=== PATIENT | female | born 1975 | race Caucasian/White ===

== ENCOUNTER 2018-06-04 16:35 | Emergency (ER) | payer BC ==
[2018-06-04] MEDS ORDERED: SODIUM CHLORIDE 1,000 ML IV STA ×2 (16:42→17:50)
[2018-06-04] MEDS ORDERED: ONDANSETRON 4 MG/2 ML VIAL IVPB ONE (16:42)
--- NOTE | 2018-06-04 16:48 | PDOC ---
History of Present Illness - General History Source: Patient Exam Limitations: No Limitations - History of Present Illness Initial Comments: 06/04/18 16:49 The patient is a year old female, with a significant past medical history of, who presents to the emergency department with, nausea, vomiting, abdominal pain , and nonbloody diarrhea. As per patient, her child and were recently sick with similar symptoms. Her was in the ER the day prior and discharged diagnosed with a viral infection. She describes her abdominal pain as a constant cramping. Patient notes she has not been able to tolerate any PO intake today, prompting her visit to the ER. She denies recent fevers, chills, headache or dizziness. She denies recent dysuria, frequency, urgency or hematuria. She denies recent chest pain or shortness of breath. Allergies: NKA Past surgical history: . Social history: Nonsmoker. Denies EtOH use and recreational drug use. <Radames Tompkins - Last Filed: 06/04/18 16:49> <Stephen Obregon - Last Filed: 06/04/18 18:58> - General Chief Complaint: Vomiting/Diarrhea Stated Complaint: VOMITING, DIARRHEA Time Seen by Provider: 06/04/18 16:41 Past History <Radames Tompkins - Last Filed: 06/04/18 16:49> - Past Medical History COPD: No Other medical history: SEASONAL/ENVIRONMENTAL ALLERGIES - Suicide/Smoking/Psychosocial Hx Smoking History: Never smoked Have you smoked in the past 12 months: No Information on smoking cessation initiated: No Hx Alcohol Use: No Drug/Substance Use Hx: No Substance Use Type: None <Stephen Obregon - Last Filed: 06/04/18 18:58> - Past Medical History Allergies/Adverse Reactions: Allergies Allergy/AdvReac Type Severity Reaction Status Date / Time No Known Allergies Allergy Verified 06/04/18 16:37 Home Medications: Ambulatory Orders Fexofenadine HCl [Lisa Allergy] mg PO BID 06/04/18 Fluticasone Prop 0.05% Nasal [Flonase -] 1 - 2 spray NS DAILY 06/04/18 Montelukast Sodium [Singulair] 10 mg PO DAILY 06/04/18 Ondansetron [Zofran Odt -] 4 mg SL TID PRN #12 od.tablet 06/04/18 Review of Systems - Review of Systems Able to Perform ROS?: Yes Comments:: 06/04/18 16:49 CONSTITUTIONAL: Absent: fever, no chills, no fatigue EYES: Absent: visual changes ENT: Absent: ear pain, no sore throat CARDIOVASCULAR: Absent: chest pain, no palpitations RESPIRATORY: Absent: cough, no SOB GI: Present: abdominal pain, nausea, vomiting, diarrhea GENITOURINARY: Absent: dysuria, no frequency, no hematuria MUSKULOSKELETAL: Absent: back pain, no arthralgia, no myalgia SKIN: Absent: rash NEURO: Absent: headache All Other Systems: Reviewed and Negative <Radames Tompkins - Last Filed: 06/04/18 16:49> *Physical Exam - Vital Signs Last Vital Signs Temp Pulse Resp BP Pulse Ox 98.1 F 111 H 18 113/74 98 06/04/18 16:35 06/04/18 16:35 06/04/18 16:35 06/04/18 16:35 06/04/18 16:35 - Physical Exam Comments: 06/04/18 16:50 GENERAL: Well developed, well nourished. Awake and alert. No acute distress. HEENT: Normocephalic, atraumatic. PERRLA, EOMI. No conjunctival pallor. Sclera are non- icteric. Moist mucous membranes. Oropharynx is clear. NECK: Supple. Full ROM. No JVD. Carotid pulses 2+ and symmetric, without bruits. No thyromegaly. No lymphadenopathy. CARDIOVASCULAR: Regular rate and rhythm. No murmurs, rubs, or gallops. Distal pulses are 2+ and symmetric. PULMONARY: No evidence of respiratory distress. Lungs clear to auscultation bilaterally. No wheezing, rales or rhonchi. +ABDOMINAL: Mild diffuse tenderness without localization. Soft. Non-distended. No rebound or guarding. No organomegaly. Normoactive bowel sounds. MUSCULOSKELETAL Normal range of motion at all joints. No bony deformities or tenderness. No CVA tenderness. EXTREMITIES: No cyanosis. No clubbing. No edema. No calf tenderness. SKIN: Warm and dry. Normal capillary refill. No rashes. No jaundice. NEUROLOGICAL: Alert, awake, appropriate. Cranial nerves 2-12 intact. No deficits to light touch and temperature in face, upper extremities and lower extremities. No motor deficits in the in face, upper extremities and lower extremities. Normoreflexic in the upper and lower extremities. Normal speech. Toes are down- going bilaterally. Gait is normal without ataxia. PSYCHIATRIC: Cooperative. Good eye contact. Appropriate mood and affect. <Radames Tompkins - Last Filed: 06/04/18 16:49> - Vital Signs Last Vital Signs Temp Pulse Resp BP Pulse Ox 98.1 F 111 H 18 113/74 98 06/04/18 16:35 06/04/18 16:35 06/04/18 16:35 06/04/18 16:35 06/04/18 16:35 <Stephen Obregon - Last Filed: 06/04/18 18:58> ED Treatment Course - LABORATORY CBC & Chemistry Diagram: 06/04/18 16:42 06/04/18 16:55 <Stephen Obregon - Last Filed: 06/04/18 18:58> Medical Decision Making - Medical Decision Making 06/04/18 17:05 Woman with nausea vomiting and diarrhea since this morning. Unable to hold anything down. and small child had similar illnesses earlier in the week , have recovered. No history of GI disease or surgery other than . No fever/chills or continuous abdominal pain Vital signs are normal except for minimal tachycardia, and physical exam shows only mild diffuse abdominal tenderness without localization, without guarding or rebound. Normal bowel sounds and nondistended. IV fluids and Zofran administered. Observation. 06/04/18 17:07 06/04/18 18:10 WBC 13.2 with a left shift. Sodium 130. Potassium 4.0. Remainder of labs without significant abnormalities. Consistent with viral gastroenteritis. Patient much improved. No further vomiting. No further diarrhea. Nausea is controlled. 06/04/18 18:43 <Stephen Obregon - Last Filed: 06/04/18 18:58> *DC/Admit/Observation/Transfer - Attestations Scribe Attestion: 06/04/18 16:50 Documentation prepared by Radames Tompkins, acting as medical records library professor for Stephen Ponce MD. <Radames Tompkins - Last Filed: 06/04/18 16:49> - Discharge Dispostion Decision to Admit order: No <Stephen Obregon - Last Filed: 06/04/18 18:58> Diagnosis at time of Disposition: Viral gastroenteritis - Discharge Dispostion Disposition: HOME Condition at time of disposition: Improved - Prescriptions Prescriptions: Ondansetron [Zofran Odt -] 4 mg SL TID PRN #12 od.tablet PRN Reason: Nausea And/Or Vomiting - Referrals Referrals: Ajay Bruno MD [Staff Physician] - - Patient Instructions Printed Discharge Instructions: DI for Viral Gastroenteritis -- Adult
[2018-06-04 16:52] LABS: PH,URINE 5.5 (4.5-8); URINE APPEARANCE Clear; URINE BILIRUBIN 1+ (NEGATIVE); URINE COLOR Amber; URINE GLUCOSE (UA) Negative (NEGATIVE); URINE KETONE Trace (NEGATIVE); URINE LEUK ESTERASE Negative (NEGATIVE); URINE NITRITE Negative (NEGATIVE); URINE PROTEIN Trace (NEGATIVE); URINE UROBILINOGEN 0.2 (0.2-1.0)
[2018-06-04 16:55] VITALS: BP 113/74; TEMP 98.1; BMI 31.8
[2018-06-04 16:58] LABS: HCG,QUALITATIVE URINE Negative
[2018-06-04 17:00] LABS: EPI CELLS 4+ /HPF; URINE BACTERIA FEW /hpf (NEGATIVE); URINE RBC 0-2 /hpf (0-3); URINE WBC 0-2 (0-5)
[2018-06-04] MEDS ORDERED: ONDANSETRON 4 MG/2 ML VIAL ONE (17:02)
[2018-06-04 17:07] LABS: HEMOGLOBIN 14.9 GM/dl (10.7-15.3)
[2018-06-04 17:11] LABS: HEMATOCRIT 43.9 % (32.4-45.2); MCH 31.8 pg (25.7-33.7); MCHC 33.9 g/dl (32.0-36.0); MEAN CELL VOLUME 93.9 fl (80-96); MEAN PLT VOLUME 8.9 fl (7.5-11.1); PLATELET COUNT 298 K/MM3 (134-434); RBC 4.68 M/mm3 (3.60-5.2); RDW 11.5 % (11.6-15.6); WHITE BLOOD COUNT 13.2 K/mm3 (4.0-10.8)
[2018-06-04 17:21] LABS: ALK PHOS 84 U/L (32-92); ANION GAP 5 MMOL/L (8-16); BILIRUBIN,TOTAL 0.9 mg/dl (0.2-1.0); BLOOD UREA NITROGEN 13 mg/dl (7-18); CALCIUM 9.1 mg/dl (8.4-10.2); CHLORIDE 104 mmol/L (98-107); CO2 22 mmol/L (22-28); CREATININE 0.9 mg/dl (0.6-1.3); GLUCOSE,RANDOM 124 mg/dl (74-106); SGOT/AST 27 U/L (10-42); SGPT/ALT 47 U/L (10-40); SODIUM 131 mmol/L (136-145); TOT PROT 7.8 g/dl (6.4-8.3)
[2018-06-04 17:23] LABS: PLATELET ESTIMATE ADEQUATE
[2018-06-04] MEDS ORDERED: ACETAMINOPHEN 1000 MG/100 ML VIAL (NON FORMULARY) IVPB ONE (17:50)
[2018-06-04] MEDS ORDERED: ACETAMINOPHEN INJECTION 100 ML IVPB ONE (17:50)
[2018-06-04 19:15] VITALS: PULSE 89
== END 2018-06-04 19:01 | disposition home or self-care (01) ==
LOC: FER 16:35
PROC: 3E033NZ Introduction of Analgesics, Hypnotics, Sedatives into Peripheral Vein, Percutaneous Approach (ICD-10-PCS; principal; 2018-06-04)
PROC: 3E033GC Introduction of Other Therapeutic Substance into Peripheral Vein, Percutaneous Approach (ICD-10-PCS; 2018-06-04)
PROC: 3E0337Z Introduction of Electrolytic and Water Balance Substance into Peripheral Vein, Percutaneous Approach (ICD-10-PCS; 2018-06-04)
DX: A08.4 Viral intestinal infection, unspecified (principal)
CPT/HCPCS: 36415; 80053; 81003; 81015; 84703; 85025; 99283-25; J0131; J7030

== ENCOUNTER 2018-06-08 10:25 | Emergency (ER) | payer BC ==
[2018-06-08] MEDS ORDERED: SODIUM CHLORIDE 1,000 ML IV STA (10:29)
[2018-06-08 10:31] VITALS: BP 144/93; PULSE 85; TEMP 98.5; BMI 31.8
[2018-06-08 11:04] LABS: BASO % 0.4 % (0-2.0); EOS % 4.2 % (0-4.5); HEMATOCRIT 41.2 % (32.4-45.2); HEMOGLOBIN 13.9 GM/dl (10.7-15.3); LYMPH % 35.2 % (8-40); MCH 31.3 pg (25.7-33.7); MCHC 33.6 g/dl (32.0-36.0); MEAN CELL VOLUME 93.1 fl (80-96); MEAN PLT VOLUME 8.4 fl (7.5-11.1); MONO % 6.8 % (3.8-10.2); NEUT % 53.4 % (42.8-82.8); PLATELET COUNT 321 K/MM3 (134-434); RBC 4.43 M/mm3 (3.60-5.2); RDW 11.2 % (11.6-15.6); WHITE BLOOD COUNT 4.5 K/mm3 (4.0-10.8)
[2018-06-08 11:05] LABS: PH,URINE 6.5 (4.5-8); URINE APPEARANCE Cloudy; URINE BILIRUBIN Negative (NEGATIVE); URINE COLOR Red; URINE GLUCOSE (UA) Negative (NEGATIVE); URINE KETONE Negative (NEGATIVE); URINE LEUK ESTERASE Negative (NEGATIVE); URINE NITRITE Negative (NEGATIVE); URINE PROTEIN 1+ (NEGATIVE); URINE UROBILINOGEN 0.2 (0.2-1.0)
[2018-06-08 11:08] LABS: URINE RBC >100 /hpf (0-3)
[2018-06-08 11:09] LABS: EPI CELLS FEW /HPF
[2018-06-08 11:22] LABS: ALBUMIN 3.8 g/dl (3.5-5.0); ALK PHOS 81 U/L (32-92); ANION GAP 9 MMOL/L (8-16); BILIRUBIN,TOTAL 0.6 mg/dl (0.2-1.0); BLOOD UREA NITROGEN 9 mg/dl (7-18); CALCIUM 8.9 mg/dl (8.4-10.2); CHLORIDE 104 mmol/L (98-107); CO2 25 mmol/L (22-28); CREATININE 0.9 mg/dl (0.6-1.3); GLUCOSE,RANDOM 71 mg/dl (74-106); POTASSIUM 3.7 mmol/L (3.5-5.1); SGOT/AST 52 U/L (10-42); SGPT/ALT 84 U/L (10-40); SODIUM 138 mmol/L (136-145); TOT PROT 7.1 g/dl (6.4-8.3)
--- NOTE | 2018-06-08 11:23 | PDOC ---
History of Present Illness - General Chief Complaint: Pain, Acute Stated Complaint: RLQ ABD PAIN Time Seen by Provider: 06/08/18 10:28 - History of Present Illness Initial Comments: 06/08/18 11:17 42yo F with no significant PMH presents to the ED with RLQ pain since this morning. Pt reports pain began while she was driving her daughter to daycare. Reports pain was getting worse with every bump on the road. When asked where pain is, she points to her inferior R flank. No radiation of pain. Denies associated N/V, fevers, chills, dysuria, frequency. Pt was seen here last week for N/V/D and diagnosed with gastroenteritis - she states those sxs have resolved. Pain is constant, does not come in waves. No hx similar pain. Pt currently on day 3 of her period and states she is bloated as she typically is on her period. +hx . Last BM 2 days ago was normal. Passing flatus. No other hx abd surgeries. Denies CP, SOB, headaches, stiff neck, rashes, LE edema. Past History - Past Medical History Allergies/Adverse Reactions: Allergies Allergy/AdvReac Type Severity Reaction Status Date / Time No Known Allergies Allergy Verified 06/04/18 16:37 Home Medications: Ambulatory Orders Fexofenadine HCl [Lisa Allergy] mg PO BID 06/04/18 Fluticasone Prop 0.05% Nasal [Flonase -] 1 - 2 spray NS DAILY 06/04/18 Montelukast Sodium [Singulair] 10 mg PO DAILY 06/04/18 Ondansetron [Zofran Odt -] 4 mg SL TID PRN #12 od.tablet 06/04/18 COPD: No Other medical history: SEASONAL, ENVIRONMENTAL ALLERGIES - Reproductive History Is Patient Now?: No - Suicide/Smoking/Psychosocial Hx Smoking History: Never smoked Have you smoked in the past 12 months: No Information on smoking cessation initiated: No Hx Alcohol Use: No Drug/Substance Use Hx: No Substance Use Type: None Review of Systems - Review of Systems Comments:: 06/08/18 11:21 GENERAL/CONSTITUTIONAL: No fever or chills. No weakness. HEAD, EYES, EARS, NOSE AND THROAT: No change in vision. No ear pain or discharge. No sore throat. GASTROINTESTINAL: No nausea, vomiting, diarrhea or constipation. +R lower flank abd pain GENITOURINARY: No dysuria, frequency, or change in urination. CARDIOVASCULAR: No chest pain or shortness of breath. RESPIRATORY: No cough, wheezing, or hemoptysis. MUSCULOSKELETAL: No joint or muscle swelling or pain. No neck or back pain. SKIN: No rash NEUROLOGIC: No headache, vertigo, loss of consciousness, or change in strength/ sensation. ENDOCRINE: No increased thirst. No abnormal weight change. HEMATOLOGIC/LYMPHATIC: No anemia, easy bleeding, or history of blood clots. ALLERGIC/IMMUNOLOGIC: No hives or skin allergy. *Physical Exam - Vital Signs Last Vital Signs Temp Pulse Resp BP Pulse Ox 98.5 F 85 18 144/93 97 06/08/18 10:25 06/08/18 10:25 06/08/18 10:25 06/08/18 10:25 06/08/18 10:25 - Physical Exam Comments: 06/08/18 11:21 GENERAL: Awake, alert, and fully oriented, in no acute distress HEAD: No signs of trauma EYES: PERRLA, EOMI, sclera anicteric, conjunctiva clear ENT: ANares patent, oropharynx clear without exudates. Moist mucosa NECK: Normal ROM, supple, no lymphadenopathy, JVD, or masses LUNGS: Breath sounds equal, clear to auscultation bilaterally. No wheezes, and no crackles HEART: Regular rate and rhythm, normal S1 and S2, no murmurs, rubs or gallops ABDOMEN: Soft, +ttp over [place] point. +mild distention, no tympany to percussion. No lower pelvic or ovarian ttp EXTREMITIES: Normal range of motion, no edema. No cords, erythema, or tenderness NEUROLOGICAL: Normal speech, cranial nerves intact, 5/5 strength in all 4 extremities, normal sensation to light touch in all 4 extremities, normal gait SKIN: Warm, Dry, normal turgor, no rashes or lesions noted. ED Treatment Course - LABORATORY CBC & Chemistry Diagram: 06/08/18 10:45 06/08/18 10:45 - ADDITIONAL ORDERS Additional order review: Laboratory Results 06/08/18 06/08/18 10:47 10:47 Urine Color Red Urine Appearance Cloudy Urine pH 6.5 Ur Specific [place] 1.010 Urine Protein 1+ H Urine Glucose (UA) Negative Urine Ketones Negative Urine Blood 3+ H Urine Nitrite Negative Urine Bilirubin Negative Urine Urobilinogen 0.2 Ur Leukocyte Esterase Negative Urine RBC >100 Urine WBC 2-5 Ur Epithelial Cells Few Urine HCG, Qual Negative 06/08/18 10:45 RBC 4.43 MCV 93.1 MCHC 33.6 RDW 11.2 L MPV 8.4 Neutrophils % 53.4 Lymphocytes % 35.2 Monocytes % 6.8 Eosinophils % 4.2 Basophils % 0.4 - RADIOLOGY Radiology Studies Ordered: Category Date Time Status ABDOMEN & PELVIS CT WITH CONTR [CT] Stat CT Scan 06/08/18 11:17 Ordered Medical Decision Making - Medical Decision Making 06/08/18 11:22 42yo F hx depression presents to the ED with R lower flank pain. REcent diarrheal illness now resolved. Vitals wnl. Exam with ttp over mcburneys point. DDx includes but not limited to appy vs renal colic vs ovarian cyst vs colitis vs enteritis. Plan -labs -upt -ivf -npo -ctap -pt declines pain medication for now 06/08/18 11:26 No leukocytosis UA with 3+ blood due to menstrual cycle, no LE, few whites - not concerning for infection CT pending 06/08/18 13:54 CTAP negative for acute pathology Pt reports pain only when moving Pelvic exam with no adnexal or midline ttp, neg CMT, +blood in vault as pt has her period TVUS ordered to look for ovarian pathology such as cyst vs cyst rupture Pt declines pain medications 06/08/18 17:14 US reveals R sided ovarian cyst and small amount free fluid in cul de sac consistent with ovarian cyst rupture Results explained to pt Pt feels well, will f/u with her PURCHASING CLERK at [facility] within 1 week for rpt US REturn precautions given, explained that sudden worsening of pain may be ovarian torsion (and that this could compromise fertility) and to return to the ED immediately Pt expresses understanding Requests DC home I discussed the physical exam findings, ancillary test results and final diagnoses with the patient. I answered all of the patient's questions. The patient was satisfied with the care received and felt comfortable with the discharge plan and treatment plan. The patient will call their primary care physician within 24 hours to arrange follow-up and will return to the Emergency Department with any new, persistent or worsening symptoms. *DC/Admit/Observation/Transfer Diagnosis at time of Disposition: Ruptured ovarian cyst - Discharge Dispostion Disposition: HOME Condition at time of disposition: Stable Decision to Admit order: No - Referrals - Patient Instructions Printed Discharge Instructions: DI for Ovarian Cyst Additional Instructions: Take ibuprofen or tylenol as needed for pain Follow up with your PURCHASING CLERK doctor at [facility] within 1 week Return to the emergency department if you have any new, worsening, or concerning symptoms such as sudden worsening or uncontrolled pain, nausea, vomiting, or fever. - Post Discharge Activity - Attestations Physician Attestion: 06/08/18 17:17 I, Dr. Emiliano Sam MD, attest that this document has been prepared under my direction and personally reviewed by me in its entirety. I further attest, that it accurately reflects all work, treatment, procedures and medical decision -making performed by me.
[2018-06-08 13:11] LABS: LIPASE 121 U/L (73-393)
== END 2018-06-08 17:35 | disposition home or self-care (01) ==
LOC: FER 10:25
PROC: 3E0337Z Introduction of Electrolytic and Water Balance Substance into Peripheral Vein, Percutaneous Approach (ICD-10-PCS; principal; 2018-06-08)
DX: N83.299 Other ovarian cyst, unspecified side (principal); F32.9 Major depressive disorder, single episode, unspecified
CPT/HCPCS: 36415; 74177-TC; 76830-TC; 80053; 81003; 81015; 83690; 84703; 85025; 87086; 99285-25; J7030

== ENCOUNTER 2018-10-15 11:59 | Emergency (ER) | payer BC ==
[2018-10-15 12:05] VITALS: BMI 30.1
--- NOTE | 2018-10-15 12:07 | PDOC ---
History of Present Illness - General Chief Complaint: Vomiting/Diarrhea Stated Complaint: N/V/D Time Seen by Provider: 10/15/18 12:03 - History of Present Illness Initial Comments: 10/15/18 12:39 42 years old past medical history significant for seasonal ALLERGIES depression multiple sick contacts home with similar GI illness presents to the ED with 3 day history of multiple episodes of profuse nausea vomiting and diarrhea. No travel no recent hospitalizations no recent antibiotics symptoms are moderate persistent concent no exacerbating or alleviating contacts now difficulty tolerating fluids Past History - Past Medical History Allergies/Adverse Reactions: Allergies Allergy/AdvReac Type Severity Reaction Status Date / Time No Known Allergies Allergy Verified 10/15/18 12:00 Home Medications: Ambulatory Orders Fexofenadine HCl [Lisa Allergy] 0 mg PO BID 06/04/18 Montelukast Sodium [Singulair] 10 mg PO DAILY 06/04/18 Fluoxetine HCl [Prozac] 20 mg PO DAILY 10/15/18 Ondansetron [Zofran Odt -] 4 mg SL TID #21 od.tablet 10/15/18 COPD: No - Suicide/Smoking/Psychosocial Hx Smoking History: Never smoked Have you smoked in the past 12 months: No Hx Alcohol Use: No Drug/Substance Use Hx: No Substance Use Type: None Review of Systems - Review of Systems Comments:: 10/15/18 13:04 ROS: A complete review of 10 out of 10 review of systems is taken and is negative apart from what is previously mentioned below and in the HPI. *Physical Exam - Physical Exam Comments: 10/15/18 13:05 Vitals: Triage Vital signs reviewed General Appearance: no acute distress, well nourished well developed, Head: Atraumatic, Neck: Supple;No Nucal rigidity Chest Wall: Nontender Cardiac: Regular rate and rhythym, no murmurs, no rubs, no gallops, Lungs: Clear to auscultation bilateral, good air movement bilaterally, Abdomen: Soft, non distended, normal bowel sounds, non tender to palpation Extremities: Full range of motion to all extremities, no cyanosis, clubbing, or edema Skin: Warm and dry, no rashes or lesions, no rash, no petechiae Psych: normal mood, normal affect ED Treatment Course - LABORATORY CBC & Chemistry Diagram: 10/15/18 12:14 10/15/18 12:14 Medical Decision Making - Medical Decision Making 10/15/18 13:22 42 years old no significant past medical history with nausea vomiting diarrhea multiple sick contacts at home likely viral illness Status post antiemetics and fluid patient feels better repeat abdominal exam benign patient has tolerating fluids by mouth. We'll discharge home with prescription for Zofran Find his, need for follow-up and strict return instructions discussed patient. *DC/Admit/Observation/Transfer Diagnosis at time of Disposition: Gastroenteritis - Discharge Dispostion Disposition: HOME Condition at time of disposition: Stable Decision to Admit order: No - Prescriptions Prescriptions: Ondansetron [Zofran Odt -] 4 mg SL TID #21 od.tablet - Referrals Referrals: [facility] [Provider Group] - Patient Instructions Printed Discharge Instructions: Viral Gastroenteritis Additional Instructions: Take Zofran as prescribed. Drink plenty of fluids small amounts frequently during the day. If no vomiting by tomorrow okay to proceed to a very bland diet. Progress her diet slowly. Return to ED for any severe abdominal pain persistent vomiting - Post Discharge Activity Forms/Work/School Notes: Back to Work
[2018-10-15] MEDS ORDERED: ONDANSETRON 4 MG/2 ML VIAL IVPUSH ONE (12:08)
[2018-10-15] MEDS ORDERED: SODIUM CHLORIDE 0.9% 1000 ML INFUS.BAG IV ONE (12:08)
[2018-10-15] MEDS ORDERED: FAMOTIDINE 20 MG/50 ML IVPB 20 MG/50 ML MG IVPB ONE ×2 (12:08→12:09)
[2018-10-15] MEDS ORDERED: ONDANSETRON 4 MG/2 ML VIAL ONE (12:09)
[2018-10-15] MEDS ORDERED: ACETAMINOPHEN 1000 MG/100 ML VIAL (NON FORMULARY) IVPB ONE (12:16)
[2018-10-15] MEDS ORDERED: ACETAMINOPHEN INJECTION 100 ML IVPB ONE (12:16)
[2018-10-15 12:44] LABS: HEMATOCRIT 42.4 % (32.4-45.2); HEMOGLOBIN 14.6 GM/dl (10.7-15.3); LYMPH % 14.5 % (8-40); MCH 31.6 pg (25.7-33.7); MCHC 34.5 g/dl (32.0-36.0); MEAN CELL VOLUME 91.6 fl (80-96); MEAN PLT VOLUME 8.9 fl (7.5-11.1); MONO % 4.8 % (3.8-10.2); NEUT % 79.7 % (42.8-82.8); PLATELET COUNT 215 K/MM3 (134-434); RBC 4.63 M/mm3 (3.60-5.2); RDW 12.4 % (11.6-15.6); WHITE BLOOD COUNT 6.6 K/mm3 (4.0-10.8)
[2018-10-15 12:50] LABS: ALBUMIN 3.8 g/dl (3.4-5.0); ALK PHOS 88 U/L (45-117); ANION GAP 8 MMOL/L (8-16); BILIRUBIN,TOTAL 0.9 mg/dl (0.2-1); BLOOD UREA NITROGEN 14 mg/dl (7-18); CALCIUM 8.6 mg/dl (8.5-10); CHLORIDE 101 mmol/L (98-107); CO2 25 mmol/L (21-32); CREATININE 0.9 mg/dl (0.55-1.3); GLUCOSE,RANDOM 98 mg/dl (74-106); POTASSIUM 3.8 mmol/L (3.5-5.1); SGOT/AST 26 U/L (15-37); SGPT/ALT 32 U/L (13-61); SODIUM 134 mmol/L (136-145); TOT PROT 7.4 g/dl (6.4-8.2)
[2018-10-15 13:16] VITALS: BP 93/54; PULSE 101; TEMP 99.6
== END 2018-10-15 13:37 | disposition home or self-care (01) ==
LOC: FER 11:59
PROC: 3E033GC Introduction of Other Therapeutic Substance into Peripheral Vein, Percutaneous Approach (ICD-10-PCS; principal; 2018-10-15)
PROC: 3E0337Z Introduction of Electrolytic and Water Balance Substance into Peripheral Vein, Percutaneous Approach (ICD-10-PCS; 2018-10-15)
DX: K52.9 Noninfective gastroenteritis and colitis, unspecified (principal); F32.9 Major depressive disorder, single episode, unspecified; J30.2 Other seasonal allergic rhinitis
CPT/HCPCS: 36415; 80053; 85025; 99282-25; J0131; J7030

== ENCOUNTER 2019-02-19 20:04 | Emergency (ER) | payer BC ==
[2019-02-19 20:15] VITALS: BP 136/94; PULSE 80; TEMP 98.7; BMI 27.7
[2019-02-19] MEDS ORDERED: AMOX TR/POT CLAV 875MG/125MG TABLETS (FP) PO ONE (20:32)
[2019-02-19] MEDS ORDERED: AMOX TR/POT CLAV 875MG/125MG TABLETS (FP) ONE (20:39)
--- NOTE | 2019-02-20 05:21 | PDOC ---
Documentation entered by Caleb Serra SCRIBE, acting as scribe for Zabrina Galvez MD. Zabrina Galvez MD: This documentation has been prepared by the Maryse shaikh Elijah, SCRIBE, under my direction and personally reviewed by me in its entirety. I confirm that the documentation accurately reflects all work, treatment, procedures, and medical decision making performed by me. History of Present Illness - General Chief Complaint: Bite Stated Complaint: DOG BITE History Source: Patient Exam Limitations: No Limitations - History of Present Illness Initial Comments: 02/19/19 20:32 Patient is a 43 year old female with a significant past medical history of Seasonal Allergies who presents to the ED with a dog bite. Patient reports that she was carrying a basket of laundry in an outside area where a neighbor's dog( Vanesa kruger) was restrained. She was trying to avoid the dog, but the dog ran towards her and bit her on the Right Thigh. Patient associates pain and burning in the area she was bitten. The dog is up to date on its shots and the patient believes her tetanus immunization is up to date because she had recently been bitten by a dog x 2-3 months ago and was seen in an ED. Denies pain, numbness or tingling in right leg distal to the bite . No history of poor wound healing, immunocompromise or resistant organism colonization / infection Allergies: NKA Social History: Denies Alcohol, Tobacco and Drug Use Past History - Past Medical History Allergies/Adverse Reactions: Allergies Allergy/AdvReac Type Severity Reaction Status Date / Time No Known Allergies Allergy Verified 10/15/18 12:00 Home Medications: Ambulatory Orders Fexofenadine HCl [Lisa Allergy] 0 mg PO BID 06/04/18 Montelukast Sodium [Singulair] 10 mg PO DAILY 06/04/18 Fluoxetine HCl [Prozac] 20 mg PO DAILY 10/15/18 Ondansetron [Zofran Odt -] 4 mg SL TID #21 od.tablet 10/15/18 Amox-Tr/K Cl [Augmentin - 875Mg Tablet] 1 tab PO BID #10 tablet 02/19/19 COPD: No - Suicide/Smoking/Psychosocial Hx Smoking History: Never smoked Have you smoked in the past 12 months: No Hx Alcohol Use: No Drug/Substance Use Hx: No Substance Use Type: None Review of Systems - Review of Systems Comments:: 02/19/19 20:32 All systems are reviewed and negative except as noted in the HPI *Physical Exam - Vital Signs Last Vital Signs Temp Pulse Resp BP Pulse Ox 98.7 F 80 18 136/94 100 02/19/19 20:11 02/19/19 20:11 02/19/19 20:11 02/19/19 20:11 02/19/19 20:11 - Physical Exam Comments: 02/19/19 20:32 GENERAL: Awake, alert, and fully oriented, in no acute distress HEAD: No signs of trauma EYES: PERRLA, EOMI, sclera anicteric, conjunctiva clear ENT: Auricles normal inspection, hearing grossly normal, nares patent, oropharynx clear without exudates. Moist mucosa NECK: Normal ROM, supple, no lymphadenopathy, JVD, or masses LUNGS: Breath sounds equal, clear to auscultation bilaterally. No wheezes, and no crackles HEART: Regular rate and rhythm, normal S1 and S2, no murmurs, rubs or gallops ABDOMEN: Soft, nontender, normoactive bowel sounds. No guarding, no rebound. No masses EXTREMITIES: +3cm x 3cm Erythematous, tender, slightly edematous of medial proximal area of Right Thigh +1mm puncture wound. + 1cm x 1cm central area of ecchymosis of Right Thigh. NEUROLOGICAL: Cranial nerves II through XII grossly intact. Normal speech SKIN: Warm, Dry, normal turgor, no rashes or lesions noted Medical Decision Making - Medical Decision Making As noted above, this otherwise healthy 43-year-old woman presents with dog bite to the proximal, medial aspect of the right thigh. Bite was sustained just prior to presentation. No other injury sustained. Exam as noted with one small puncture wound and a larger area of contused tissue. Wound was carefully cleansed using sterile normal saline. Bacitracin ointment was placed on the puncture wound followed by sterile gauze dressing. The patient has no known ALLERGIES and she was given first dose of Augmentin 875 /125 here in the emergency room. Prescription for a 5 day course of Augmentin 875/125 twice a day will be sent to her pharmacy. She has been cautioned to take the medication with a meal. She should return to the emergency room or see her doctor if area of bite becomes more swollen/red/painful or she develops fever. *DC/Admit/Observation/Transfer Diagnosis at time of Disposition: Dog bite of right thigh Qualifiers: Encounter type: initial encounter Qualified Code(s): S71.151A - Open bite, right thigh, initial encounter; W54.0XXA - Bitten by dog, initial encounter - Discharge Dispostion Disposition: HOME Condition at time of disposition: Stable - Prescriptions Prescriptions: Amox-Tr/K Cl [Augmentin - 875Mg Tablet] 1 tab PO BID #10 tablet - Referrals - Patient Instructions Printed Discharge Instructions: DI for Animal Bites Additional Instructions: Elevation/ice to area of bite for the next 24 hours Augmentin 875/125 twice a day for 5 daystake with meal Bacitracin or Neosporin ointment and gauze dressing to wound daily for the next 3 days After 3 days, protective dressing as needed Aleve/Advil/Tylenol as needed for pain Return to ER or see your doctor if area of bite becomes more swollen/painful/ red or has any drainage from open wound - Post Discharge Activity
== END 2019-02-19 20:43 | disposition home or self-care (01) ==
LOC: FER 20:04
DX: S71.151A Open bite, right thigh, initial encounter (principal); W54.0XXA Bitten by dog, initial encounter; Y93.89 Activity, other specified; Y92.89 Other specified places as the place of occurrence of the external cause; J30.2 Other seasonal allergic rhinitis
CPT/HCPCS: 99281-25

== ENCOUNTER 2019-02-20 22:17 | Emergency (ER) | payer BC ==
[2019-02-20 22:25] VITALS: BP 130/78; PULSE 84; TEMP 98.6; BMI 30.1
[2019-02-20] MEDS ORDERED: PIPERACILLIN/TAZOB 3.375 GM 3.375 GM in DEXTROSE 5%-WATER - 50 ML IVPB ONE (22:43)
[2019-02-20] MEDS ORDERED: PIPERACILLIN/TAZOBACTAM 3.375 GM VIAL IVPB ONE (22:46)
--- NOTE | 2019-02-20 22:55 | PDOC ---
Documentation entered by Abelino Glass SCRIBE, acting as scribe for Apple Moreland MD. Apple Moreland MD: This documentation has been prepared by the Quan shaikh Xhesika, SCRIBE, under my direction and personally reviewed by me in its entirety. I confirm that the documentation accurately reflects all work, treatment, procedures, and medical decision making performed by me. History of Present Illness - General Chief Complaint: Pain Stated Complaint: RT LEG PAIN Time Seen by Provider: 02/20/19 22:25 History Source: Patient Exam Limitations: No Limitations - History of Present Illness Initial Comments: 02/20/19 22:31 Patient is a 43 year old female with a significant past medical history of Seasonal Allergies who presents to the ED with a dog bite since yesterday. Patient reports that her neighbor's dog bit her on the Right Thigh. Patient was seen here in the ED yesterday and was prescribed amoxicillin (took first dose this evening), however, her pain is worsening and is associated with swelling, redness and is warm to touch. Pt notes she took a hot shower and iced the area for 10 minutes today. The patient denies chest pain, shortness of breath, headache and dizziness. Denies fever, chills, cough, nausea, vomiting, diarrhea and constipation. Denies dysuria, frequency, urgency and hematuria. Allergies: NKA Social History: Denies Alcohol, Tobacco and Drug Use. Past History - Past Medical History Allergies/Adverse Reactions: Allergies Allergy/AdvReac Type Severity Reaction Status Date / Time No Known Allergies Allergy Verified 10/15/18 12:00 Home Medications: Ambulatory Orders Fexofenadine HCl [Lisa Allergy] 0 mg PO BID 06/04/18 Montelukast Sodium [Singulair] 10 mg PO DAILY 06/04/18 Fluoxetine HCl [Prozac] 20 mg PO DAILY 10/15/18 Ondansetron [Zofran Odt -] 4 mg SL TID #21 od.tablet 10/15/18 Amox-Tr/K Cl [Augmentin - 875Mg Tablet] 1 tab PO BID #10 tablet 02/19/19 COPD: No - Immunization History Immunization Up to Date: Yes - Suicide/Smoking/Psychosocial Hx Smoking History: Never smoked Have you smoked in the past 12 months: No Hx Alcohol Use: No Drug/Substance Use Hx: No Substance Use Type: None Review of Systems - Review of Systems Able to Perform ROS?: Yes Comments:: 02/20/19 22:32 GENERAL/CONSTITUTIONAL: No fever or chills. No weakness. HEAD, EYES, EARS, NOSE AND THROAT: No change in vision. No ear pain or discharge. No sore throat. CARDIOVASCULAR: No chest pain or shortness of breath. RESPIRATORY: No cough, wheezing, or hemoptysis. GASTROINTESTINAL: No nausea, vomiting, diarrhea or constipation. GENITOURINARY: No dysuria, frequency, or change in urination. MUSCULOSKELETAL: (+) R thigh swelling and redness. (+) R thigh warm to touch. No neck or back pain. NEUROLOGIC: No headache, vertigo, loss of consciousness, or change in strength/ sensation. ENDOCRINE: No increased thirst. No abnormal weight change. HEMATOLOGIC/LYMPHATIC: No anemia, easy bleeding, or history of blood clots. ALLERGIC/IMMUNOLOGIC: No hives or skin allergy. *Physical Exam - Vital Signs Last Vital Signs Temp Pulse Resp BP Pulse Ox 98.6 F 84 16 130/78 100 02/20/19 22:19 02/20/19 22:19 02/20/19 22:19 02/20/19 22:19 02/20/19 22:19 - Physical Exam Comments: 02/20/19 22:53 awake alert lungs clear bilat heart rrr no mrg abd soft nt nd ext wwp. right inner thigh with two punctate wounds surrounded by 2 in erythema. sensitive to touch, warmth. no exudate. no crepitus. nuero alert oriented x 3. ED Treatment Course - LABORATORY CBC & Chemistry Diagram: 02/20/19 22:50 02/20/19 22:50 Medical Decision Making - Medical Decision Making 02/20/19 22:54 43 yo F w h/o dog bit yesterday to inner thigh, was given one dose augmentin in ed yesterday, not taken until tonight pror to arrival. worsening signs of cellulitis. localzied. will obtain cultrues wbc an labs r/o overwhelming infection. given IV dose of zosyn. pending labs, pt will require close followup vs. admission. 02/20/19 23:58 pt with normal wbc. given iv dose of zosyn here. hadn't taken abx yet today until just earlier this evening. will dc home with continued abx. recommend soaking and repeat evaluation in 24 - 48 hours. wound outlines. for redness swelling beyond borders recommend to return to ed immediately. *DC/Admit/Observation/Transfer Diagnosis at time of Disposition: Dog bite - Discharge Dispostion Disposition: HOME Condition at time of disposition: Improved - Referrals - Patient Instructions Printed Discharge Instructions: How to Care for a Domestic Animal Bite Additional Instructions: continue taking augmentin twice daily. for any spreading of redness, red streaking fever, chills or any concerns you should return to emergency room immediately. you should also return within 1 - 2 days for repeat evaluation of the wound. - Post Discharge Activity
[2019-02-20 23:03] LABS: BASO % 0.7 % (0-2.0); EOS % 4.8 % (0-4.5); HEMATOCRIT 40.4 % (32.4-45.2); HEMOGLOBIN 13.4 GM/dl (10.7-15.3); LYMPH % 36.4 % (8-40); MCH 31.6 pg (25.7-33.7); MCHC 33.2 g/dl (32.0-36.0); MEAN CELL VOLUME 95.3 fl (80-96); MEAN PLT VOLUME 8.7 fl (7.5-11.1); MONO % 5.1 % (3.8-10.2); PLATELET COUNT 252 K/MM3 (134-434); RBC 4.24 M/mm3 (3.60-5.2); RDW 12.5 % (11.6-15.6)
[2019-02-20 23:17] LABS: BILIRUBIN,TOTAL 0.3 mg/dl (0.2-1); CALCIUM 9.1 mg/dl (8.5-10); CREATININE 1.1 mg/dl (0.55-1.3); POTASSIUM 3.7 mmol/L (3.5-5.1); TOT PROT 7.1 g/dl (6.4-8.2)
[2019-02-21] MEDS ORDERED: IBUPROFEN 600 MG TABLET (FP) PO ONE ×2 (00:03→00:07)
== END 2019-02-21 00:11 | disposition home or self-care (01) ==
LOC: FER 22:17
DX: S71.151A Open bite, right thigh, initial encounter (principal); W54.0XXA Bitten by dog, initial encounter; Y93.89 Activity, other specified; Y92.89 Other specified places as the place of occurrence of the external cause; J30.2 Other seasonal allergic rhinitis
CPT/HCPCS: 36415; 80053; 85025; 87040; 99283-25

== ENCOUNTER 2020-07-04 23:26 | Emergency (ER) | payer BC ==
[2020-07-04 23:32] VITALS: BP 111/73; PULSE 82; TEMP 99.2; BMI 29.2
[2020-07-04] MEDS ORDERED: CEPHALEXIN MONOHYDRATE 500 MG CAPSULE (UD) PO ONE (23:59)
[2020-07-04] MEDS ORDERED: DIPHTH,PERTUSS(ACELL),TET 0.5 ML DISP.SYRIN IM ONE (23:59)
[2020-07-05] MEDS ORDERED: CEPHALEXIN MONOHYDRATE 500 MG CAPSULE (UD) ONE (00:02)
[2020-07-05] MEDS ORDERED: DIPHTH,PERTUSS(ACELL),TET 0.5 ML DISP.SYRIN IM ONE (00:02)
== END 2020-07-05 00:17 | disposition home or self-care (01) ==
LOC: FER 23:26
PROC: 3E0234Z Introduction of Serum, Toxoid and Vaccine into Muscle, Percutaneous Approach (ICD-10-PCS; principal; 2020-07-04)
DX: S71.141A Puncture wound with foreign body, right thigh, initial encounter (principal); W45.8XXA Other foreign body or object entering through skin, initial encounter
CPT/HCPCS: 90715; 99283-25

== ENCOUNTER 2023-03-30 17:50 | Emergency (ER) | payer BC ==
[2023-03-30 18:06] VITALS: BP 109/68; PULSE 85; RESP 20; TEMP 98.2; BMI 28.3
[2023-03-30] MEDS ORDERED: KETOROLAC TROMETHAMINE 15 MG/ML VIAL IM ONE (18:29)
[2023-03-30] MEDS ORDERED: LIDOCAINE 5% TOPICAL PATCH TP ONE (18:30)
[2023-03-30] MEDS ORDERED: KETOROLAC TROMETHAMINE 30 MG/1 ML VIAL ONE (18:41)
[2023-03-30] MEDS ORDERED: LIDOCAINE 5% TOPICAL PATCH ONE (18:41)
[2023-03-30] MEDS ORDERED: LIDOCAINE PATCH REMOVAL MC SCH (22:00)
== END 2023-03-30 19:27 | disposition home or self-care (01) ==
LOC: FER 17:50
PROC: 3E0233Z Introduction of Anti-inflammatory into Muscle, Percutaneous Approach (ICD-10-PCS; principal; 2023-03-30)
DX: M54.50 Low back pain, unspecified (principal)
CPT/HCPCS: 99284-25